=== PATIENT | male | born 1975 | race Asian ===

== ENCOUNTER 2016-10-03 20:57 | Emergency (ER) | payer MEDICARE, MEDICAID ==
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
[2016-10-03 22:32] LABS: Hematocrit 45 % (42-52); Hemoglobin 14.3 g/dl (14.0-18.0); Mean Corpuscular HGB Conc 32 g/dl (31-36); Mean Corpuscular Hemoglobin 26 pg (27-31); Mean Corpuscular Volume 80 fL (80-94); Mean Platelet Volume 10 um3 (7.4-10.4); Red Blood Count 5.58 10^6/ul (4.0-5.4); Red Cell Distribution Width 14 % (10.5-15); White Blood Count 11.1 10^3/ul (3.5-10.8)
[2016-10-03 22:44] LABS: BUN/Creatinine Ratio 11.3 (8-20); Calcium 9.2 mg/dL (8.6-10.3); EGFR African American 138.4 (>60); EGFR Non-African American 107.6 (>60); Magnesium 2.1 mg/dL (1.9-2.7)
[2016-10-03 22:52] LABS: Potassium 3.8 mmol/L (3.5-5.0)
[2016-10-03 22:53] LABS: TSH (Thyroid Stimulating Horm) 0.57 mcIU/mL (0.34-5.60)
[2016-10-03 23:37] VITALS: BP 125/78
== END 2016-10-03 23:35 | disposition home or self-care (01) ==
LOC: ED 20:57
DX: R00.2 Palpitations (principal); R51 Headache; R11.0 Nausea
CPT/HCPCS: 36415; 80048; 83735; 84443; 84484; 85025; 93005; 99282

== ENCOUNTER 2017-11-24 18:02 | Emergency (ER) | payer MEDICARE, MEDICAID ==
[2017-11-24] MEDS ORDERED: Ketorolac INJ* 60 MG/2 ML VIAL IM ONE (20:26)
[2017-11-24 21:24] VITALS: BP 168/106
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
== END 2017-11-24 21:22 | disposition home or self-care (01) ==
LOC: ED 18:02
DX: S39.012A Strain of muscle, fascia and tendon of lower back, initial encounter (principal); X58.XXXA Exposure to other specified factors, initial encounter; Y92.9 Unspecified place or not applicable
CPT/HCPCS: 96372; 99282; J1885

== ENCOUNTER 2018-05-24 22:39 | Emergency (ER) | payer MEDICARE, MEDICAID ==
[2018-05-25] MEDS ORDERED: Ibuprofen TAB* 600 MG PO ONE (01:56)
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
[2018-05-25 06:35] VITALS: BP 134/79
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
== END 2018-05-25 06:36 | disposition home or self-care (01) ==
LOC: ED 22:39
DX: M25.572 Pain in left ankle and joints of left foot (principal); M25.562 Pain in left knee
CPT/HCPCS: 99283; A9270-GY

== ENCOUNTER 2019-06-11 22:02 | Emergency (ER) | payer MEDICARE, MEDICAID ==
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
[2019-06-11 22:41] LABS: ABS Eosinophils 0.2 10^3/ul (0-0.6); ABS Lymphocytes 1.8 10^3/ul (1.0-4.8); ABS Monocytes 0.6 10^3/ul (0-0.8); ABS Neutrophils 4.7 10^3/ul (1.5-7.7); Eosinophil % 2.5 %; Hematocrit 41 % (42-52); Hemoglobin 13.5 g/dL (14.0-18.0); Lymphocyte % 24.7 %; Mean Corpuscular HGB Conc 33 g/dL (31-36); Mean Corpuscular Hemoglobin 26 pg (27-31); Mean Corpuscular Volume 79 fL (80-94); Platelet Count 229 10^3/uL (150-450); Red Blood Count 5.18 10^6 /uL (4.18-5.48); Red Cell Distribution Width 14 % (10-15); White Blood Count 7.3 10^3/uL (3.5-10.8)
[2019-06-11 22:48] LABS: INR 1.01 (0.82-1.09)
[2019-06-11 23:05] LABS: Albumin 3.7 g/dL (3.2-5.2); BUN/Creatinine Ratio 10.6 (8-20); Calcium 8.8 mg/dL (8.6-10.3); EGFR African American 94.8 (>60); EGFR Non-African American 78.3 (>60); Globulin 3.7 g/dL (2-4); Potassium 3.9 mmol/L (3.5-5.0); Total Bilirubin 0.3 mg/dL (0.2-1.0); Total Protein 7.4 g/dL (6.4-8.9)
[2019-06-11 23:07] LABS: Troponin I 0.01 ng/mL (<0.03)
--- OUTSIDE RECORDS SUMMARY | 2019-06-11 23:25 | XMS REPORT | Continuity of Care Document ---
:1975 External Reference #:[id number] Author Name Jory Jade, NATE Address [address] [facility] [address] [facility] [place] [address] Care Team Providers Name Role Phone Brinda Watson M.D. - Family Care Team Information Java Groovy Developer [facility] Living - Care Team Information Java Groovy Developer [phone] Financial Institution Branch Manager [facility] - Sleep Disorder Care Team Information Java Groovy Developer Diagnostic Luann Olsen M.D. - Family Medicine Care Team Information Java Groovy Developer Unavailable Beny Tellez - Sports Medicine Care Team Information Java Groovy Developer Problems Active Problems Provider Date Morbid obesity Brinda Watson M.D. Onset: 10/20/2011 Low back pain Brinda Watson M.D. Onset: 10/20/2011 Latent schizophrenia Simon Larry M.D. Onset: 06/06/2012 Disturbance in sleep behavior Simon Larry M.D. Onset: 01/16/2013 Type 2 diabetes mellitus Luann Olsen M.D. Onset: 05/04/2016 Schizophrenia Luann Olsen M.D. Onset: 05/04/2016 Social History Type Date Description Comments Sex Unknown Tobacco Use Start: Unknown Never Smoked Cigarettes ETOH Use Denies alcohol use Recreational Drug Use Denies Drug Use Tobacco Use Start: Unknown End: Patient is a former briefly when younger Unknown smoker Smoking Status Reviewed: 04/15/19 Patient is a former briefly when younger smoker Allergies, Adverse Reactions, Alerts Active Allergies Reaction Severity Comments Date NKDA 10/20/2011 Bees 04/26/2018 Medications Active Medications SIG Qnty Indications Ordering Date Provider Advair Diskus 1 puff twice a 60units R05 Ashwini 02/19/2019 day, rinse Todd, GRAVEL ROOFER 100-50mcg/Dose mouth/throat Aerosol after use; Knee Brace left knee M25.562 Luann Olsen, 07/25/2018 [facility] provide size M.D. that fits; use as directed Acetaminophen Extra take 2 by mouth 120tabs M25.562 Luann Olsen, 2017 Strength twice daily as M.D. 500mg Tablets needed for knee pain Diclofenac Sodium Apply 4 Grams Of 200units M25.562 Dea C. 04/18/2018 1% Gel To The Knee NATE Sanchez Gel Three Times Per Day as Needed Ibuprofen take 1 tablet 3 60tabs M54.5 Luann Olsen, 04/24/2013 600mg Tablets times a day with M.D. food as needed M54.31 Geodon 2 po [facility] 02/12/2007 80mg Capsules Michelle Cornejo 1 by mouth every hs Unknown 15mg Tablets Metformin HCL 1 po bid 30tabs Unknown 500mg Tablets Immunizations CPT Code Status Date Vaccine Lot # [id number] Given 05/09/2018 Influenza Vac, Quadrivalent, Slit Virus, Im [id number] Given 05/19/2016 Influenza Vac, Quadrivalent, Slit Virus, Im [id number] 67580 Given 07/20/2010 DO Not Use Split Influenza Virus Vaccine [id number] Given 02/12/2010 Tetanus And Diptheria Adult Preservative Free [id number] >[id number] Vital Signs Date Vital Result Comment 04/15/2019 1:14pm BP Systolic 160 mmHg BP Diastolic 100 mmHg Heart Rate 80 /min Body Temperature 97.9 F Respiratory Rate 16 /min Height 69 inches 5'9" Weight 343.00 lb BMI (Body Mass Index) 50.6 kg/m2 03/12/2019 2:56pm BP Systolic 138 mmHg BP Diastolic 80 mmHg Heart Rate 78 /min Body Temperature 97.9 F Respiratory Rate 18 /min Weight 338.00 lb Results Test Date Facility Test Result H/L Range Note Laboratory test 03/12/2019 Family Medicine Hemoglobin A1c 5.8 % High 4.1- 5.7 finding (607)- - (Fma) Procedures Date Code Description Status 03/12/2019 46561 Finger Or Heel Stick Completed Medical Devices Description No Information Available Encounters Type Date Location Provider Dx Diagnosis Office Visit 03/12/2019 [facility] Luann Olsen, F20.9 Schizophrenia , 3:20p M.D. unspecified E11.9 Type 2 diabetes mellitus without complications M54.5 Low back pain M25.562 Pain in left knee Office Visit 02/19/2019 11:30a [facility] JUAN FRANCISCO Jolley R05 Cough E11.9 Type 2 diabetes mellitus without complications F20.9 Schizophrenia, unspecified E66.01 Morbid (severe) obesity due to excess calories Assessments Date Code Description Provider 04/15/2019 M54.5 Low back pain Jory Jade NP 04/15/2019 F20.9 Schizophrenia, unspecified Jory Jade NP 04/15/2019 E11.9 Type 2 diabetes mellitus without Jory Jade NP complications 04/15/2019 E66.01 Morbid (severe) obesity due to excess Jory Jade NP calories 04/15/2019 Z23 Encounter for immunization Jory Jade NP 04/15/2019 R03.0 Elevated blood-pressure reading, without Jory Jade NP diagnosis of hypertension 03/12/2019 F20.9 Schizophrenia, unspecified Luann Olsen M.D. 03/12/2019 E11.9 Type 2 diabetes mellitus without Luann Olsen M.D. complications 03/12/2019 M54.5 Low back pain Luann Olsen M.D. 03/12/2019 M25.562 Pain in left knee Luann Olsen M.D. 02/19/2019 R05 Cough Ashwini Brooks, GRAVEL ROOFER 02/19/2019 E11.9 Type 2 diabetes mellitus without Ashwini Todd, GRAVEL ROOFER complications 02/19/2019 F20.9 Schizophrenia, unspecified Ashwini Todd, GRAVEL ROOFER 02/19/2019 E66.01 Morbid (severe) obesity due to excess Ashwini Todd, GRAVEL ROOFER calories Plan of Treatment Future Appointment(s):04/29/2019 9:15 am - Luann Olsen M.D. at Main [id number] 2:00 pm - Luann Olsen M.D. at Main Mppkyr3204/15/2019 - Jory Mary Jade, NPM54.5 Low back painComments:Apply heat packs to affected area. Use acetaminophen/ibuprofen/aleve for pain as directed. Avoid heavy lifting. Do maite stretching but nothing strenuous. Sleep in a bed, avoid couches or recliners. Return if condition worsens, fails to improve or if concerning features arise. continue PTF20.9 Schizophrenia, unspecifiedComments:forms for personal fitness trainer filled out, followed by gtehpW52.9 Type 2 diabetes mellitus without complicationsComments:Recommend yearly diabetic eye and foot exams, and check on blood pressure periodically. Goal blood sugar is less than 140 in the morning or A1c less than 7.E66.01 Morbid (severe) obesity due to excess caloriesComments:Counseled on heart healthy diet and [id number] Encounter for immunizationFollow up:[place] in 2 weeks for flu shot - patient states he wants to wait until .0 Elevated blood-pressure reading, without diagnosis of hypertensionComments:I want you to take your blood pressure after you spend 3 minutes with feet flat on the floor and your arms at your side taking some nice deep breaths. Keep a log of these over the next coming weeks to reviewCall me or seek medical attention if you are experiencing any symptoms like chest pain, bad headache, shortness of breath.Follow up:2 weeks [place] BP Check patient instructed to call back if condition fails to improve or worsens.AllComments: Medication Management Patient Understands medications he 's taking? Yes No Are there Barriers to Adherence? Yes No Has the patient been asked about herbal supplements and therapies, andOTC meds? Yes No Care Plan1. Patient has been queried about patient's goals/preferences and functional/lifestyle goals at relevant visits. If relevant, describe: na2. Treatment goals as explained to the patient: above3. Are there barriers to meeting treatment goals? Yes No If Yes, please describe: comorbid conditions, polypharmacy, disease process 4. Self-Management goals as described to the patient: Yes NoAs always, we strongly encourage a healthy diet and making physical activity a part of your every day life. If you have questions about how or where to start, please contact the office. Functional Status Description No Information Available Mental Status Description No Information Available Referrals Refer to Reason for Referral Status Appt [facility] Physical evaluate and treat back and left Scheduled Therapy leg pain jw [address] [facility] [address] [place] [address] [phone]
[2019-06-12 01:51] VITALS: BP 128/93
== END 2019-06-12 02:01 | disposition home or self-care (01) ==
LOC: ED 22:02
DX: R07.9 Chest pain, unspecified (principal); G47.30 Sleep apnea, unspecified; E66.9 Obesity, unspecified; R94.31 Abnormal electrocardiogram [ECG] [EKG]; R42 Dizziness and giddiness; Z79.899 Other long term (current) drug therapy
CPT/HCPCS: 36415; 80053; 84484; 85025; 85610; 93005; 99282

== ENCOUNTER 2019-11-15 20:14 | Emergency (ER) | payer MEDICARE, MEDICAID ==
--- OUTSIDE RECORDS SUMMARY | 2019-11-15 20:47 | XMS REPORT ---
:1975 Author Organization [facility] Care Team Providers Name Role Phone CARRIE CAGLE Primary Care Physician Unavailable Allergies, Adverse Reactions, Alerts Allergy Code CodeSystem Reaction Severity Criticality Status Start Substance Date Moderate Medications Medication Medication Medication Start Stop Route Dose Status Fill Code CodeSystem Date Date Instructions ziprasidone 339367 RxNorm 2019- oral 80 mg active for 30 HCl 7-16 10-14 capsule day(s) ziprasidone 396528 RxNorm 2019- oral 80 mg 2 completed Take 2 HCl 4-04 07-03 capsule capsule at at bedtime for bedtime 30 day(s) ziprasidone 075926 RxNorm 2019- oral 80 mg completed for 30 HCl 1-08 04-04 capsule day(s) ziprasidone 095275 RxNorm 2019- oral 80 mg completed for 30 HCl 4-04 07-16 capsule day(s) metformin 836405 RxNorm 2019- oral 850 mg 1 active Take 1 tablet 5-01 10-14 tablet twice a day twice a for 30 day(s) day aripiprazole 984603 RxNorm 2019- oral 15 mg 1 active Take 1 tablet 4-04 10-14 tablet once a day once a for 30 day(s) day aripiprazole 608308 RxNorm 2019- oral 15 mg completed for 30 8-22 04-04 tablet day(s) metformin 476968 RxNorm 2019- oral 850 mg completed for 30 9- 05-01 tablet day(s) Problems Problem Name Code CodeSystem Alternate Alternate Start End Status Narrative Code CodeSystem Date Date Schizophreni 15526681 SNOMED-CT Active a, 3-22 unspecified Relevant diagnostic tests/laboratory data Narrative No Information Procedures Procedure Code CodeSystem Target Date of Status Service Device Device Device Name Site Procedure Delivery Code Name UID Location SNOMED-CT () 2018-10-24 complete [facility], [id number] Office or [id number] SNOMED-CT () 2018-11-08 complete Mental other 7 d Health- outpatient [place] visit for [address], of [place], established [id number] patient, [id number] which requires at least 2 of these 3 flores components: An expanded problem focused history; An expanded problem focused examination; Medical decision making of low SNOMED-CT () 2018-11-18 complete [facility], [id number] Preventive 148576 SNOMED-CT () 2018-11-18 complete Mental medicine 0 d Health- counseling [place] and/or risk [address], (s) [facility], to an [place], individual [id number] (separate [id number] procedure); approximatel y 15 minutes SNOMED-CT () 2018-11-20 complete [facility], [id number] SNOMED-CT () 2018-12-27 complete Mental d [address], [id number] SNOMED-CT () 2019-01-15 complete Mental d [address], [id number] Office or [id number] SNOMED-CT () 2019-02-05 complete Mental other 7 d Health- outpatient [place] visit for [address], of an [place], established [id number] patient, [id number] which requires at least 2 of these 3 flores components: An expanded problem focused history; An expanded problem focused examination; Medical decision making of low SNOMED-CT () 2019-02-18 complete Mental d [address], [id number] [id number] SNOMED-CT () 2019-03-06 complete Mental d Health- [address], [id number] Office or [id number] SNOMED-CT () 2019-03-28 complete Mental other 7 d Health- outpatient [place] visit for [address], established [id number] patient, [id number] which requires at least 2 of these 3 flores components: An expanded problem focused history; An expanded problem focused examination; Medical decision making of low SNOMED-CT () 2019-04-02 complete Mental d Health- [place], [id number] [phone] SNOMED-CT () 2019-05-13 complete Mental d Health- [place], [id number] [id number] Office or [id number] SNOMED-CT () 2019-05-26 complete Mental other 6 d Health- outpatient [place] visit for [address], established [id number] patient, [phone] which requires at least 2 of these 3 flores components: A problem focused history; A problem focused examination; Straightforw aisha medical decision making. Counselin Office or [id number] SNOMED-CT () 2019-08-08 complete Mental other 6 d Health- outpatient [place] visit for [address], established [phone] patient, [phone] which requires at least 2 of these 3 flores components: A problem focused history; A problem focused examination; Straightforw aisha medical decision making. Counselin Psychotherap [id number] SNOMED-CT () 2019-08-19 complete Mental y, 45 04 d Health- minutes with Sivan patient [address], [id number] [phone] Psychotherap [id number] SNOMED-CT () 2019-09-16 complete Mental y, 45 04 d Health- minutes with Sivan patient [address], [id number] [phone] Encounters/Encounter Diagnoses Encounter Name Encounter Diagnosis Diagnosis Diagnosis Date of Service Code Code Name CodeSystem Diagnosis Delivery Location Psychotherapy 47083 [id number] Schizophrenia SNOMED-CT 2019-09-16 Behavioral Individual 30 , unspecified Health [facility] [address] [place], [place], [phone] Vital Signs No Information Social History Element Description Description Start End Code CodeSystem AdditionalInfo Date Date SexAssignedAtBirth Male M AdministrativeGender 02-06 Hospital Discharge Instructions Reason For Referral Medical Equipment FDA Assessments
[2019-11-15] MEDS ORDERED: Cyclobenzaprine TAB* 10 MG PO ONE (22:02)
[2019-11-15] MEDS ORDERED: Ketorolac INJ* 30 MG/ML 1 ML VIAL IM ONE (22:02)
[2019-11-15] MEDS ORDERED: Lidocaine PATCH 5%* 1 PATCH TRANSDERM ONE (22:05)
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
[2019-11-15 22:40] VITALS: BP 147/98
[2019-11-16] MEDS ORDERED: Lidocaine Patch REMOVE* 1 NOTE MISC SCH (21:00)
== END 2019-11-15 22:38 | disposition home or self-care (01) ==
LOC: ED 20:14
DX: M54.9 Dorsalgia, unspecified (principal); Q24.9 Congenital malformation of heart, unspecified; I10 Essential (primary) hypertension; G47.30 Sleep apnea, unspecified
CPT/HCPCS: 96372; 99282; A9270-GY; J1885